=== PATIENT | female | born 1960 | race Caucasian/White ===

== ENCOUNTER → 2020-05-12 10:59 | Outpatient (CLI) | payer OTHER, SELFPAY ==
--- NOTE | ~2020-05-12 | MM_ITS ---
EXAMINATION: MM screening [facility] BI w dave HISTORY: Screening TECHNIQUE: Craniocaudal and mediolateral oblique 3-D tomosynthesis images were obtained and synthetic 2-D images were generated. CAD analysis was submitted and interpreted. COMPARISON: Comparison to multiple prior studies sequentially, with oldest reviewed study dated 12/02. BREAST PARENCHYMAL COMPOSITION: The breasts are heterogeneously dense, which may obscure small masses . FINDINGS: There is no evidence of suspicious mass, calcification, or architectural distortion to sugg est malignancy in either breast. There has been no suspicious interval change. IMPRESSION: 1. No mammographic evidence of malignancy. 2. Recommend routine screening mammography in one year. BI-RADS Category 1: Negative Reviewed, dictated and finalized at location A. NESS OFFICE COORDINATOR
--- NOTE | ~2020-05-12 | DEXA_ITS ---
Bone Density Report Name: Flaquita Syed Age: 59 Sex: Female Ethnicity: White Date of : 1960 Indication: postmenopausal; screening for osteoporosis; Referring Provider: Cayetano Riley Study: Bone densitometry was performed. Exam Date: May 12, 2020 Accession number: [id number] Bone Density: Region BMD T-score Z-score Classification AP Spine (L1, L2, L3) 0.936 -0.7 0.6 Normal Femoral Neck (Left) 0.587 -2.4 -1.1 Osteopenia Total Hip (Left) 0.772 -1.4 -0.5 Osteopenia Femoral Neck (Right) 0.747 -0.9 0.3 Normal Total Hip (Right) 0.747 -1.6 -0.7 Osteopenia Total Hip Mean 0.760 -1.5 -0.6 Osteopenia World Health Organization criteria for BMD impression classify patients as: Normal (T-score at or above -1.0), Osteopenia (T-score between -1.0 and -2.5), or Osteoporosis (T-score at or below -2.5). 10-year Fracture Risk(1): Major Osteoporotic Fracture 10% Hip Fracture 1.7% Reported Risk Factors: [place] (), Neck BMD=0.587, BMI=23.8 (1) FRAX(R) Version 3.08. Fracture probability calculated for an untreated patient. Fracture probability may be lower if the patient has received treatment. Clinical Information Provided by Patient: Patient maximum height was 60 Menopause Age: 50 No regular weight bearing exercise Drinks caffeinated beverages Onset of menses at age 14 Number of children 2 Impression: The patient has low bone mass, based on the Left Femoral Neck T-score. The patient has an estimated ten-year risk of hip fracture of 1.7% and an estimated ten-year risk of major fracture of 10%, based on the WHO FRAX algorithm. Discussion: BONE DENSITY IS LOW AT ONE OR MORE SKELETAL SITES. This patient's lowest T-score is low at one or more skeletal sites. It meets the World Health Organization's (WHO) criteria for ?low bone mass? (T-score between -1.0 and -2.5). The patient's 10-year risk of fracture as calculated by FRAX is less than the threshold where pharmacological therapy is recommended by the National Osteoporosis Foundation (NOF). However, all treatment decisions require clinical judgment and consideration of individual patient factors, including patient preferences, comorbidities, previous drug use, risk factors not captured in the FRAX model (e.g., frailty, falls, vitamin D deficiency, increased bone turnover, interval significant decline in bone density) and possible under or overestimation of fracture risk by FRAX. The patient should follow a healthful lifestyle (good nutrition with adequate calcium and vitamin D, and appropriate weight-bearing exercise). Follow-Up: Consider repeating this study in 2 to 3 years to reassess this patient's status, or sooner if there is some new clinical indication. Reported by: REED on 05/12/2020 11:21:00 AM.
== END ==
PROVIDERS: PCP Family Medicine; Visit Provider Physician Assistant
DX: Z12.31 Encounter for screening mammogram for malignant neoplasm of breast (principal); M85.852 Other specified disorders of bone density and structure, left thigh; M85.851 Other specified disorders of bone density and structure, right thigh
CPT/HCPCS: 77063; 77067; 77080

== ENCOUNTER → 2021-01-12 02:59 | Outpatient (CLI) | payer OTHER, SELFPAY ==
[2021-01-13 07:19] LABS: SARS-CoV-2 RNA PCR Negative
== END ==
PROVIDERS: PCP Family Medicine; Visit Provider Family Medicine
DX: J02.9 Acute pharyngitis, unspecified (principal); R05 Cough; Z20.822 Contact with and (suspected) exposure to COVID-19
CPT/HCPCS: C9803; U0003; U0005

== ENCOUNTER → 2021-05-02 00:45 | Outpatient (CLI) | payer OTHER, SELFPAY ==
[2021-05-03 10:57] LABS: SARS-CoV-2 RNA PCR Positive
== END ==
PROVIDERS: PCP Family Medicine; Visit Provider Physician Assistant
DX: U07.1 COVID-19 (principal)
CPT/HCPCS: C9803; U0003; U0005

== ENCOUNTER 2021-05-19 08:27 | Outpatient (CLI) | payer OTHER, SELFPAY ==
--- NOTE | ~2021-05-19 | CT_ITS ---
EXAMINATION: CTA abdomen pelvis DATE: 05/19/2021 09:58 INDICATION: Accelerated hypertension TECHNIQUE: Computed tomographic angiography (CTA) of the abdomen and pelvis was performed with 100 mL Omnipaque-350 intravenous contrast. Additional 3D reconstructions utilizing rotating maximum intensi ty projection (MIP) were performed. Automated exposure control and iterative reconstruction technique were employed. The dose-length product was 258.65 mGy-cm. COMPARISON: None FINDINGS: Mild atelectasis at the lingula and right middle lobe. Heart size is normal. No pericardial or pleura l effusion. 2.2 cm cyst in the left hepatic lobe. Liver, gallbladder, spleen, pancreas, bilateral adr enal glands and kidneys are normal. There are few scattered colonic diverticula without adjacent infl ammatory change to suggest diverticulitis. Small bowel and appendix are normal. Tiny fat-containing u mbilical hernia. Bladder, uterus and bilateral adnexa are unremarkable. No free intraperitoneal gas o r fluid. No pathologically enlarged abdominal or pelvic lymphadenopathy. Lumbar spondylosis most prom inent at L4-L5 there is severe left-sided joint space narrowing with associated Modic type III sclero tic endplate changes. Mild left and moderate right hip osteoarthritis. Normal caliber lower thoracic and abdominal aorta with no dissection and minimal scattered atheroscle rotic plaque without stenosis. Additional small amount of atherosclerotic plaque without appreciable stenosis at the origins of the superior mesenteric and right renal arteries. No plaque or stenosis at the celiac axis or left renal artery. Small amount of atherosclerotic plaque at the origin of the pa tent inferior mesenteric artery which is too small in diameter to assess for degree of stenosis. Mini mal plaque without significant stenosis at the right common and left internal iliac arteries. Remaini ng arteries in the pelvis and proximal thighs are unremarkable. IMPRESSION: 1. No etiology for reported accelerated hypertension. Specifically no significant stenosis along the renal arteries and normal bilateral adrenal glands. Reviewed, dictated and finalized at location A. OYMENT MANAGER IMPRESSION: 1. No etiology for reported accelerated hypertension. Specifically no significa nt stenosis along the renal arteries and normal bilateral adrenal glands.
--- NOTE | 2021-05-19 08:40 | ECHO_ITS ---
Patient Info Name: Flaquita Syed Age: 60 years : 1960 Gender: Female Ht: 60 in Wt: 118 lbs BSA: 1.51 m2 HR: 93 bpm BP: 182 / 109 mmHg Heart Rhythm: Sinus Rhythm Technical Quality: Good Exam Date: 05/19/2021 8:47 AM Exam Location: [facility] Patient Status: Outpatient Admit Date: 05/19/2021 Staff Ordering Physician: Cayetano Riley PA-C Clock Repair Technician: Heather Garcia RDCS Attending Provider: Cayetano Riley PA-C Referring Physician: Osvaldo PAGE; Exam Type: CA echo doppler color flow Study Info Indications R01.1 - Cardiac murmur, unspecified Complete two-dimensional, color flow and Doppler transthoracic echocardiogram is performed. Summary 1. Complete two-dimensional, color flow and Doppler transthoracic echocardiogram is performed. 2. Left ventricular chamber dimension is normal. 3. Left ventricular systolic function is normal, estimated at 60-65%. 4. The left ventricular diastolic function is grade II diastolic dysfunction. 5. E/e' 10 is not elevated. 6. There is mild tricuspid valve regurgitation. 7. No pulmonary hypertension, estimated pulmonary arterial systolic pressure is 37 mmHg. 8. There is trace pulmonic regurgitation. Left Ventricle E/e' 10 is not elevated. Left ventricular chamber dimension is normal. Left ventricular systolic function is normal, estimated at 60-65%. The left ventricular diastolic function is grade II diastolic dysfunction. Right Ventricle Right ventricular systolic function is normal and with normal TAPSE 2.3 cm. Right ventricular chamber dimension is normal. Left Atria Left atrial chamber dimension is normal. Right Atria Right atrial chamber dimension is normal. Aortic Valve The aortic valve is trileaflet. There is no aortic valve stenosis. There is no aortic valve regurgitation. Pulmonic Valve There is trace pulmonic regurgitation. Mitral Valve There is no mitral valve stenosis. There is no mitral valve regurgitation. Tricuspid Valve There is mild tricuspid valve regurgitation. No pulmonary hypertension, estimated pulmonary arterial systolic pressure is 37 mmHg. Pericardium/Pleural There is no pericardial effusion. Inferior Vena Cava Normal inferior vena cava with >50% collapse upon inspiration consistent with normal right atrial pressure, 5 mmHg. Aorta The aortic root size at the sinus of Valsalva is normal. Left Ventricular Outflow Tract Name Value Normal LVOT 2D LVOT Diameter 1.8 cm LVOT Doppler LVOT Peak Gradient 5 mmHg LVOT Mean Gradient 2 mmHg LVOT VTI 23 cm LVOT VTI/AV VTI Ratio 0.7 LVOT Stroke Volume 60 ml LVOT CO 3.7 l/min LVOT CI 2.4 l/min/m2 Pulmonic Valve Name Value Normal RVOT Doppler
[2021-05-19 09:54] LABS: Estimated Glomerular Filt Rate > 60
== END 2021-05-19 08:28 | disposition home or self-care (01) ==
PROVIDERS: PCP Family Medicine; Visit Provider Physician Assistant
DX: R01.1 Cardiac murmur, unspecified (principal); I10 Essential (primary) hypertension
CPT/HCPCS: 74174; 93306; Q9967

== ENCOUNTER → 2021-05-27 09:45 | Outpatient (CLI) | payer OTHER, SELFPAY ==
--- NOTE | ~2021-05-27 | MM_ITS ---
EXAMINATION: MM screening [facility] BI w dave HISTORY: Screening mammogram TECHNIQUE: Craniocaudal and mediolateral oblique 3-D tomosynthesis images were obtained and synthetic 2-D images were generated. CAD analysis was submitted and interpreted. COMPARISON: 05/12/2020, 05/09/2018, 02/12/2017 BREAST PARENCHYMAL COMPOSITION: There are scattered areas of fibroglandular density. FINDINGS: There is no evidence of suspicious mass, calcification, or architectural distortion to sugg est malignancy in either breast. There has been no suspicious interval change. IMPRESSION: 1. No mammographic evidence of malignancy. 2. Recommend routine screening mammography in one year. BI-RADS Category 1: Negative Reviewed, dictated and finalized at location A. RAM COORDINATOR FOR [employer]ID[employer]
== END ==
PROVIDERS: PCP Family Medicine; Visit Provider Physician Assistant
DX: Z12.31 Encounter for screening mammogram for malignant neoplasm of breast (principal)
CPT/HCPCS: 77063; 77067

== ENCOUNTER 2022-02-15 14:51 | Outpatient (CLI) | payer OTHER, SELFPAY ==
[2022-02-15 15:53] LABS: SARS-CoV-2 RNA PCR Negative
== END 2022-02-15 14:52 | disposition home or self-care (01) ==
LOC: ANHLAB 14:51
PROVIDERS: PCP Emergency Medicine; Visit Provider Physician Assistant
DX: R05.9 Cough, unspecified (principal); Z20.822 Contact with and (suspected) exposure to COVID-19
CPT/HCPCS: U0003; U0005

== ENCOUNTER 2022-06-09 02:36 | Day surgery (SDC) | payer OTHER, SELFPAY ==
[2022-05-26 14:03] VITALS: BMI 24.3
--- NOTE | 2022-06-08 14:37 | PM.HPGS ---
History of Present Illness History of Present Illness Consent: Risks, benefits, and alternatives have been discussed and questions answered. Patient agrees to proceed with procedure. Chief complaint: family hx colon ca Narrative: Flaquita Syed is a 61 year old female referred for colon cancer screening. Her sister had colon cancer. Review of Systems Review of Systems: All systems reviewed & are unremarkable except as noted in HPI and below PMFSH Family History Family History Father Hypertension Cerebrovascular accident Family history of coronary artery disease Mother Hypertension Sibling Carcinoma of colon Family history of malignant neoplasm of cervix Family history of malignant neoplasm of ovary Social History Social History Years smoked: 2 Smoking status: Former smoker Tobacco type: cigarettes Alcohol intake: current Drinks per week: 2 Alcohol use details: Beer Substance use: never Lack of Transportation: No Lack of Food: Never True Current Housing: I Have Housing Concerned About Future Housing: No Difficulty Paying Gas/Electric Bills: No Difficulty Paying for Meds: No Currently Unemployed: No Education: High School Diploma/GED Difficulty w/ Childcare or Family Care: No Living arrangements: alone Additional living arrangements comments: Meds Home Medications and Allergies Home Medications Medication Instructions Recorded Confirmed Type calcium carbonate 600 mg calcium 600 mg PO BID 06/28/21 05/26/22 History (1,500 mg) tablet (Calcium) cholecalciferol (vitamin D3) 10 20 mcg PO BID 06/28/21 05/26/22 History mcg (400 unit) capsule metoprolol succinate 100 mg 100 mg PO DAILY #90 tabs 04/20/22 05/26/22 Rx tablet,extended release 24 hr lisinopril 10 1 tablet PO DAILY #90 tabs 05/04/22 05/26/22 Rx mg-hydrochlorothiazide 12.5 mg tablet Allergies Allergy/AdvReac Type Severity Reaction Status Date / Time sulfamethoxazole Allergy Intermediate RASH Verified 06/09/22 08:35 trimethoprim Allergy Intermediate RASH Verified 06/09/22 08:35 sulfamethizole Allergy Unknown Skin Verified 06/09/22 08:35 Reaction Exam Resp: Auscultation: clear to auscultation bilaterally Cardio: Rate: regular rate Rhythm: regular rhythm GI: GI Palp: Yes Soft to palpation and No Tenderness to palpation present (GI) Assessment and Plan Assessment and plan (1) Colon cancer screening: Code(s): Z12.11 - Encounter for screening for malignant neoplasm of colon Status: Acute Assessment and Plan: Colonoscopy with possible biopsy or polypectomy or cautery or injection of substances.
[2022-06-09 08:37] VITALS: BP 146/76; PULSE 87; RESP 18; TEMP 36.3; O2SAT 100
[2022-06-09] MEDS: LACTATED RINGERS 1,000 ML 150 ML IV CONT (08:52)
--- NOTE | 2022-06-09 09:01 | WPDANESEPPF ---
Anes - Initial Pre Proc Eval Procedure: Operation Date: 06/09/22 09:30 Proposed Procedures p Colonoscopy - Nicolas Bryant MD Date/Time: 06/09/22 09:01 Surgeon: Nicolas Bryant MD Pre Op Diagnosis: family hx colon ca Patient Data Age: 61 Gender: F Height: 1.52 m Weight: 55.1 kg Last Vital Signs Temp 97.3 F L 06/09/22 08:37 Pulse 87 06/09/22 08:37 Resp 18 06/09/22 08:37 BP 146/76 H 06/09/22 08:37 Pulse Ox 100 06/09/22 08:37 O2 Del Method Room Air 06/09/22 08:37 Allergies Allergy/AdvReac Type Severity Reaction Status Date / Time sulfamethoxazole Allergy Intermediate RASH Verified 06/09/22 08:35 trimethoprim Allergy Intermediate RASH Verified 06/09/22 08:35 sulfamethizole Allergy Unknown Skin Verified 06/09/22 08:35 Reaction Home Medications Medication Instructions Recorded Confirmed Type calcium carbonate 600 mg calcium 600 mg PO BID 06/28/21 05/26/22 History (1,500 mg) tablet (Calcium) cholecalciferol (vitamin D3) 10 20 mcg PO BID 06/28/21 05/26/22 History mcg (400 unit) capsule metoprolol succinate 100 mg 100 mg PO DAILY #90 tabs 04/20/22 05/26/22 Rx tablet,extended release 24 hr lisinopril 10 1 tablet PO DAILY #90 tabs 05/04/22 05/26/22 Rx mg-hydrochlorothiazide 12.5 mg tablet Patient hx anesthesia problems: none Family hx anesthesia problems: none Results Review: All pre-operative results and documents have been reviewed as part of the pre-operative evaluation. [facility] Family History Family History Father Hypertension Cerebrovascular accident Family history of coronary artery disease Mother Hypertension Sibling Carcinoma of colon Family history of malignant neoplasm of cervix Family history of malignant neoplasm of ovary Social History Social History Years smoked: 2 Smoking status: Former smoker Tobacco type: cigarettes Alcohol intake: current Drinks per week: 2 Alcohol use details: Beer Substance use: never Lack of Transportation: No Lack of Food: Never True Current Housing: I Have Housing Concerned About Future Housing: No Difficulty Paying Gas/Electric Bills: No Difficulty Paying for Meds: No Currently Unemployed: No Education: High School Diploma/GED Difficulty w/ Childcare or Family Care: No Living arrangements: alone Additional living arrangements comments: Annita Mazariegos Final PreProcedure Day of Procedure 06/09/22 09:01 Patient weight: normal Heart: regular rate and rhythm Lungs: clear to auscultation Airway: Mallampati scale class II Neurological: alert and oriented Last oral intake: >/= 8 hours ASA classification: II Emergent: no Anesthetic plan: proceed Anesthesia type and monitoring: general GIVS and standard monitoring Results Review: All pre-operative results and documents have been reviewed as part of the pre-operative evaluation. Informed Consent: The patient's anesthetic plan and its attendant risks and benefits were discussed with the patient/family/POA. Questions were solicited and answers provided to the satisfaction of the patient/family/POA.
[2022-06-09 09:43] VITALS: BP 91/55; PULSE 72; RESP 17; O2SAT 97
[2022-06-09 09:53] VITALS: BP 102/64; PULSE 79; RESP 18; O2SAT 100
[2022-06-09 10:03] VITALS: BP 107/70; PULSE 74; RESP 18; O2SAT 100
== END 2022-06-09 10:07 | disposition home or self-care (01) ==
PROVIDERS: PCP Emergency Medicine; Visit Provider Internal Medicine Gastroenterology
PROC: 0DJD8ZZ Inspection of Lower Intestinal Tract, Via Natural or Artificial Opening Endoscopic (ICD-10-PCS; CPT 45378; principal; 2022-06-09 09:30)
DX: Z12.11 Encounter for screening for malignant neoplasm of colon (principal); D12.0 Benign neoplasm of cecum; K57.30 Diverticulosis of large intestine without perforation or abscess without bleeding; Z80.0 Family history of malignant neoplasm of digestive organs; Z87.891 Personal history of nicotine dependence
CPT/HCPCS: 45385; 88305; J2704; J7120

== ENCOUNTER → 2022-08-18 15:00 | Outpatient (CLI) | payer OTHER, SELFPAY ==
--- NOTE | ~2022-08-18 | MM_ITS ---
EXAMINATION: MM screening [facility] BI w dave HISTORY: Screening mammogram TECHNIQUE: Craniocaudal and mediolateral oblique 3-D tomosynthesis images were obtained and synthetic 2-D images were generated. CAD analysis was submitted and interpreted. COMPARISON: 05/27/2021, 05/12/2020, 05/09/2018 BREAST PARENCHYMAL COMPOSITION: There are scattered areas of fibroglandular density. FINDINGS: No suspicious mass, calcification, or architectural distortion are identified in either lakshmi ast to suggest malignancy. There has been no suspicious interval change. IMPRESSION: 1. No mammographic evidence of malignancy. 2. Recommend routine screening mammography in one year. BI-RADS Category 1: Negative Reviewed, dictated and finalized at location A.
== END ==
PROVIDERS: PCP Emergency Medicine; Visit Provider Emergency Medicine
DX: Z12.31 Encounter for screening mammogram for malignant neoplasm of breast (principal)
CPT/HCPCS: 77063; 77067

== ENCOUNTER 2023-01-27 10:42 | Outpatient (CLI) | payer OTHER, SELFPAY ==
[2023-01-27 12:18] LABS: Influenza A QL RT-PCR Negative (Negative); Influenza B QL RT-PCR Negative (Negative); RSV RNA, RT-PCR Negative (Negative); SARS-CoV-2 RNA PCR Negative (Negative)
== END 2023-01-27 10:43 | disposition home or self-care (01) ==
LOC: ANHLAB 10:45
PROVIDERS: PCP Emergency Medicine; Visit Provider Emergency Medicine
DX: J06.9 Acute upper respiratory infection, unspecified (principal)
CPT/HCPCS: 87637

== ENCOUNTER 2023-09-20 12:19 | Outpatient (CLI) | payer OTHER, SELFPAY ==
--- NOTE | ~2023-09-20 | MM_ITS ---
EXAMINATION: MM screening [facility] BI w dave HISTORY: Screening TECHNIQUE: Craniocaudal and mediolateral oblique 3-D tomosynthesis images were obtained and synthetic 2-D images were generated. CAD analysis was submitted and interpreted. COMPARISON: Comparison to multiple prior studies sequentially, with oldest reviewed study dated 01/16. BREAST PARENCHYMAL COMPOSITION: Dense: The breasts are heterogeneously dense, which may obscure small masses FINDINGS: There is no evidence of suspicious mass, calcification, or architectural distortion to sugg est malignancy in either breast. There has been no suspicious interval change. IMPRESSION: 1. No mammographic evidence of malignancy. 2. Recommend routine screening mammography in one year. BI-RADS Category 1: Negative Reviewed, dictated and finalized at location B.
== END 2023-09-20 12:20 ==
PROVIDERS: PCP Emergency Medicine; Visit Provider Emergency Medicine
DX: Z12.31 Encounter for screening mammogram for malignant neoplasm of breast (principal)
CPT/HCPCS: 77063; 77067

== ENCOUNTER 2023-12-13 08:11 | Outpatient (CLI) | payer OTHER, SELFPAY ==
[2023-12-13 12:53] LABS: Alanine Aminotransferase 17 U/L (6-35); Albumin Level 4.3 g/dL (3.5-5.1); Alkaline Phosphatase 59 U/L (38-126); Anion Gap 9 mmol/L (4-12); Aspartate Amino Transferase 49 U/L (14-36); Bilirubin,Total 0.5 mg/dL (0.2-1.3); Blood Urea Nitrogen 15 mg/dL (7-17); Calcium 9.5 mg/dL (8.4-10.2); Carbon Dioxide 30 mmol/L (22-30); Chloride 97 mmol/L (98-107); Cholesterol 192 mg/dL (0-200); Estimated Glomerular Filt Rate > 60; Glucose 84 mg/dL (65-110); HDL Direct 56 mg/dL; Potassium 4.5 mmol/L (3.4-5.0); Sodium 136 mmol/L (137-145); Triglycerides 120 mg/dL (<150)
[2023-12-13 13:04] LABS: LDL Cholesterol Direct 102 mg/dL
== END 2023-12-13 08:12 | disposition home or self-care (01) ==
PROVIDERS: PCP Emergency Medicine; Visit Provider Emergency Medicine
DX: I10 Essential (primary) hypertension (principal); R73.01 Impaired fasting glucose
CPT/HCPCS: 36415; 80053; 80061

== ENCOUNTER 2024-11-13 11:30 | Outpatient (CLI) | payer BC, SELFPAY ==
--- NOTE | ~2024-11-13 | MM_ITS ---
EXAMINATION: MM screening [facility] BI w dave HISTORY: Screening TECHNIQUE: Craniocaudal and mediolateral oblique 3-D tomosynthesis images were obtained and synthetic 2-D images were generated. CAD analysis was submitted and interpreted. COMPARISON: Comparison to multiple prior studies sequentially, with oldest reviewed study dated 01/16. BREAST PARENCHYMAL COMPOSITION: Dense: The breasts are heterogeneously dense, which may obscure small masses FINDINGS: There is no evidence of suspicious mass, calcification, or architectural distortion to sugg est malignancy in either breast. There has been no suspicious interval change. IMPRESSION: 1. No mammographic evidence of malignancy. 2. Recommend routine screening mammography in one year. BI-RADS Category 1: Negative Reviewed, dictated and finalized at location B.
== END 2024-11-13 11:31 | disposition home or self-care (01) ==
LOC: MICIMG 11:31
PROVIDERS: PCP Family Medicine; Visit Provider Family Medicine
DX: Z12.31 Encounter for screening mammogram for malignant neoplasm of breast (principal)
CPT/HCPCS: 77063; 77067